=== PATIENT | male | born 1980 | race Caucasian/White ===

== ENCOUNTER → 2016-04-30 | Outpatient (CLI) | payer OTHER, BC ==
[~2016-04-30] MED LIST: CIPR-255 PO; DOCU100C PO; FLM4 PO; HYDR-5688 PO; ONDA4TAB10 SL; OXYC-57 PO; POLY335025 PO
--- NOTE | 2016-04-30 14:07 | DIAGNOSTIC IMAGING REPORT ---
KUB CLINICAL HISTORY: Nephrolithiasis. FINDINGS: 2 AP supine abdominal radiograph are compared to study dated 09/12/2014 and correlated with abdominal CT 8 06/05/2014. There is a nonobstructed abdominal bowel gas pattern. A 5 mm nonobstructing calculus projects over the upper pole of the right kidney. No calcifications are seen projecting over the left kidney or along the course of the ureters. The bony structures appear intact. The lung bases are clear as imaged. IMPRESSION: 1. There is a nonobstructing right renal calculus as detailed above. 2. No left renal calculi are identified and there is no evidence of ureteral stone. Electronically signed by: Inder Mccormack M.D. 04/30/2016 2:06 PM Dictated Date/Time: 04/30/2016 2:04 PM
== END | disposition home or self-care (01) ==
LOC: C.RAD 13:47
PROVIDERS: ATTEND Urology
DX: N20.0 Calculus of kidney (principal)

== ENCOUNTER → 2016-05-08 | Outpatient (CLI) | payer BC, OTHER ==
[~2016-05-08] MED LIST changes: -CIPR-255 PO; -DOCU100C PO; -FLM4 PO; -POLY335025 PO
--- NOTE | 2016-05-08 17:00 | DIAGNOSTIC IMAGING REPORT ---
CHEST 2 VIEWS ROUTINE CLINICAL HISTORY: N20.0 Nephrolithiasis preoperative evaluation COMPARISON STUDY: No previous studies for comparison. FINDINGS: The bones soft tissues and hemidiaphragms are normal. The cardiomediastinal silhouette is normal. The lungs are clear. The pulmonary vasculature is normal. IMPRESSION: Negative chest. Electronically signed by: David Green M.D. 05/08/2016 4:58 PM Dictated Date/Time: 05/08/2016 4:58 PM
[2016-05-08 17:09] LABS: BASO % 0.4 %; BASO ABS # 0.04 K/uL (0-0.2); COMPLETE YES; EOS % 1.8 %; HEMATOCRIT 44.6 % (42-52); IG% 0.1 %; LYMPH % 40.9 %; LYMPH ABS # 3.64 K/uL (1.2-3.4); MEAN CELL VOLUME 85.3 fL (80-100); MEAN CORPUSCULAR HEMOGLOBIN 29.3 pg (25-34); MEAN CORPUSCULAR HGB CONC 34.3 g/dl (32-36); MONO % 5.3 %; NEUT % 51.5 %; PLATELET COUNT 300 K/uL (130-400); RED BLOOD COUNT 5.23 M/uL (4.7-6.1)
[2016-05-08 17:25] LABS: URINE APPEARANCE CLEAR (CLEAR); URINE BILIRUBIN NEG (NEG); URINE COLOR YELLOW; URINE EPITHELIAL CELL AUTO 0-5 /lpf (0-5); URINE NITRITE NEG (NEG); URINE PH 6.5 (4.5-7.5); URINE SPECIFIC GRAVITY 1.014 (1.000-1.030); UROBILINOGEN NEG (NEG)
[2016-05-08 17:31] LABS: MANUAL MICROSCOPIC REQUIRED? NO; REVIEW REQ? NO
[2016-05-08 17:35] LABS: BLOOD UREA NITROGEN 16 mg/dl (7-18); BUN/CREATININE RATIO 14.4 (10-20); CARBON DIOXIDE 27 mmol/L (21-32); CHLORIDE 105 mmol/L (98-107); POTASSIUM 4.3 mmol/L (3.5-5.1); SODIUM 139 mmol/L (136-145)
== END | disposition home or self-care (01) ==
LOC: C.CPL 16:18
PROVIDERS: ATTEND Urology
DX: N20.0 Calculus of kidney (principal)

== ENCOUNTER → 2016-05-15 | Outpatient (CLI) | payer BC, OTHER ==
--- NOTE | 2016-05-15 16:18 | DIAGNOSTIC IMAGING REPORT ---
KUB CLINICAL HISTORY: Nephrolithiasis COMPARISON STUDY: 04/30/2016 FINDINGS: The renal shadows are partially obscured by overlying bowel gas and fecal material. There is a 3 mm calcification projected over the upper pole the right kidney suspicious for a calculus. There is a 2 mm calcification projected over the midpole the left kidney suspicious for a calculus. There is an equivocal additional punctate lower pole right renal calculus. There is no pathologic bowel dilatation. IMPRESSION: 1. No evidence of pathologic bowel dilatation 2. Bilateral nephrolithiasis Electronically signed by: Yobany Alvarado M.D. 05/15/2016 4:15 PM Dictated Date/Time: 05/15/2016 4:14 PM
== END | disposition home or self-care (01) ==
LOC: C.RAD 15:55
PROVIDERS: ATTEND Urology
DX: N20.0 Calculus of kidney (principal)

== ENCOUNTER → 2016-05-16 | Day surgery (SDC) | payer BC, OTHER ==
[2016-05-02 09:48] VITALS: Ht 177.8 cm; Wt 90.9 kg
[~2016-05-16] VITALS: Ht 177.8 cm; Wt 90.9 kg
[~2016-05-16] MED LIST changes: +ATROPINE SULFATE 0.1 MG/ML 5ML SYR IV PRN; +CIPROFLOXACIN 400MG / D5W IV SCH; +DEXAMETHASONE SOD INJ 4 MG/ML VIAL ONE; +EpHEDrine SULFATE INJ 50 MG/ML AMP IV PRN; +FENTANYL CITRATE INJ 50 MCG/1 ML 2 ML VIAL IV PRN; +FENTANYL CITRATE INJ 50 MCG/1 ML 2 ML VIAL ONE; +LIDOCAINE HCL 2% 2 ML VIAL (20MG/ML) ONE; +MIDAZOLAM HCL 1 MG/ML 2ML VIAL ONE; +ONDANSETRON INJ 2 MG/ML 2 ML VIAL IV PRN; +ONDANSETRON INJ 2 MG/ML 2 ML VIAL ONE; +OXYCODONE/ACETAMINOPHEN 5-325 TAB ONE; +OXYCODONE/ACETAMINOPHEN 5-325 TAB PO PRN; +PROPOFOL IV EMULSION 10 MG/ML 20 ML VIAL IV ONE
[2016-05-16] MEDS: LACTATED RINGER'S 1000ML 1,000 ML IV SCH ×2 (07:37→10:17)
--- NOTE | 2016-05-16 08:19 | History & Physical Bridge Note ---
H&P Re-Evaluation Bridge Note: I have examined the patient, reviewed the History & Physical and in the interval since the performance of the History & Physical I have noted the following changes of clinical significance: No changes noted
--- NOTE | 2016-05-16 09:18 | [facility] Post Operative Brief Note ---
Immediate Operative Summary Operative Date May 16, 2016. Pre-Operative Diagnosis right renal stones Post-Operative Diagnosis right renal stones Procedure(s) Performed R ESWL Surgeon Polly Yi Supervisor Hardboard Surgeon(s) none Estimated Blood Loss none Findings R renal stones x2 - targeted a single stone, appeared to fragment nicely Specimens none Drains none Anesthesia gen Complication(s) None Disposition Recovery Room / PACU (stable)
--- NOTE | 2016-05-16 09:22 | Discharge Instructions-SurgCtr ---
Discharge Instructions Date of Service May 16, 2016. Visit Reason for Visit: STONE Discharge Discharge Diagnosis / Problem: stone Discharge Goals Goal(s): Decrease discomfort, Improve function, Increase independence, Improve disease control Activity Recommendations Activity Limitations: resume your previous activity Lifting Limitations: none Exercise/Sports Limitations: none May Resume Sexual Activity: when tolerated Shower/Bathe: no limitations Driving or Machine Use: no limitations (as long as you aren't taking pain medications) Anesthesia . Post Anesthesia Instructions: If you have had General Anesthesia or IV Sedation: * Do not drive today. * Resume driving when surgeon permits. * Do not make important decisions or sign legal documents today. * Call surgeon for: 1. Temperature elevations greater than 101 degrees F. 2. Uncontrollable pain. 3. Excessive bleeding. 4. Persistent nausea and vomiting. 5. Medication intolerance (nausea, vomiting or rash). * For nausea and vomiting use only clear liquids such as: tea, soda, bouillon until nausea subsides, then gradually increase diet as tolerated. * If you have any concerns or questions, call your surgeon's office. If physician is unavailable and it is an emergency, call 911 or go to the nearest emergency room. . Diet Recommendations Home Diet: no limitations Procedures Procedures Performed: R ESWL Pending Studies Studies pending at discharge: no Medical Emergencies . Who to Call and When: Medical Emergencies: If at any time you feel your situation is an emergency, please call 911 immediately. . Non-Emergent Contact Non-Emergency issues call your: Urologist Call Non-Emergent contact if: you have a fever, temperature is above 101.5, your pain is not controlled, your pain is worsening, your pain is unusual for you . . "Provider Documentation" section prepared by Stalin Mcmillan. [place] Drug Monitoring Program Search Results: patient reviewed within database, no issues identified
[2016-05-16 10:28] VITALS: TEMP 36.2
[2016-05-16 10:47] VITALS: BP 113/73; PULSE 62; O2SAT 97
--- NOTE | 2016-05-16 11:00 | Anesthesiology Progress Note ---
Anesthesia Post Op Note Date & Time May 16, 2016 at 10:59 Vital Signs Pain Intensity: 4.0 Vital Signs Past 12 Hours Date Time Temp Pulse Resp B/P Pulse Ox O2 Delivery O2 Flow Rate FiO2 05/16/16 10:47 62 16 113/73 97 Room Air 05/16/16 10:28 36.2 52 16 114/74 99 Room Air 05/16/16 10:16 36.4 75 19 05/16/16 10:16 74 19 96 05/16/16 10:15 120/72 05/16/16 10:11 65 15 97 05/16/16 10:11 67 15 05/16/16 10:10 112/84 05/16/16 10:06 68 14 05/16/16 10:06 66 14 95 05/16/16 10:05 108/72 05/16/16 10:03 122/75 05/16/16 10:02 73 17 05/16/16 10:02 75 17 95 05/16/16 09:57 70 13 95 05/16/16 09:57 70 13 05/16/16 09:55 114/76 05/16/16 09:52 66 15 99 05/16/16 09:52 63 15 05/16/16 09:50 130/90 05/16/16 09:47 72 20 05/16/16 09:47 36.6 76 12 148/90 99 Diffusion Mask 6 05/16/16 09:47 72 20 148/90 99 05/16/16 07:12 36.4 78 20 114/75 97 Room Air Notes Mental Status: alert / awake / arousable, participated in evaluation Pt Amnestic to Procedure: Yes Nausea / Vomiting: adequately controlled Pain: adequately controlled Airway Patency, RR, SpO2: stable & adequate BP & HR: stable & adequate Hydration State: stable & adequate Anesthetic Complications: no major complications apparent
--- NOTE | 2016-05-16 13:30 | OPERATIVE REPORT ---
DATE OF OPERATION: 05/16/2016 PREOPERATIVE DIAGNOSIS: Right renal calculi. POSTOPERATIVE DIAGNOSIS: Right renal calculi. PROCEDURE PERFORMED: Right extracorporeal shockwave lithotripsy. ANESTHESIA: General. ESTIMATED BLOOD LOSS: Zero. URINE OUTPUT: Not recorded. SPECIMENS: None. DRAINS: None. DESCRIPTION OF THE PROCEDURE: Dax Myles was identified in the preoperative holding area. Appropriate informed consents were reviewed and completed, and the patient was transported to the operating suite. Upon arrival, he received appropriate preoperative antibiotic in the form of Cipro. General anesthesia was achieved and the patient was placed in supine position and the stone was localized under fluoroscopy. He had 2 stones noted within the right kidney and we elected to treat the upper pole stone. A total of 2500 shocks were delivered to the stone with good evidence of fragmentation. At the conclusion of the case, the patient was extubated and taken to the PACU in stable condition. Further details can be found on the [facility] information sheet. I attest to the content of the Intraoperative Record and any orders documented therein. Any exceptio ns are noted below.
== END | disposition home or self-care (01) ==
LOC: X.SURG 06:44
PROVIDERS: ATTEND Urology
DX: N20.0 Calculus of kidney (principal); Z87.442 Personal history of urinary calculi; Z82.49 Family history of ischemic heart disease and other diseases of the circulatory system; Z83.3 Family history of diabetes mellitus; Z88.0 Allergy status to penicillin; Z88.1 Allergy status to other antibiotic agents

== ENCOUNTER 2016-05-25 12:46 | Emergency (ER) | payer BC, OTHER ==
[~2016-05-25] VITALS: Ht 177.8 cm; Wt 89.7 kg
[~2016-05-25 12:46] MED LIST changes: -ATROPINE SULFATE 0.1 MG/ML 5ML SYR IV PRN; -CIPROFLOXACIN 400MG / D5W IV SCH; -DEXAMETHASONE SOD INJ 4 MG/ML VIAL ONE; -EpHEDrine SULFATE INJ 50 MG/ML AMP IV PRN; -FENTANYL CITRATE INJ 50 MCG/1 ML 2 ML VIAL IV PRN; -FENTANYL CITRATE INJ 50 MCG/1 ML 2 ML VIAL ONE; -LIDOCAINE HCL 2% 2 ML VIAL (20MG/ML) ONE; -MIDAZOLAM HCL 1 MG/ML 2ML VIAL ONE; -ONDA4TAB10 SL; -ONDANSETRON INJ 2 MG/ML 2 ML VIAL IV PRN; -ONDANSETRON INJ 2 MG/ML 2 ML VIAL ONE; -OXYC-57 PO; -OXYCODONE/ACETAMINOPHEN 5-325 TAB ONE; -OXYCODONE/ACETAMINOPHEN 5-325 TAB PO PRN; -PROPOFOL IV EMULSION 10 MG/ML 20 ML VIAL IV ONE
[2016-05-25 12:49] VITALS: TEMP 37; Ht 177.8 cm; Wt 89.7 kg
[2016-05-25] MEDS ORDERED: SODIUM CHLORIDE 0.9% 1000ML 500 ML IV ONE (13:16)
[2016-05-25 13:31] LABS: HEMATOCRIT 43.6 % (42-52); MEAN CELL VOLUME 86.5 fL (80-100); MEAN CORPUSCULAR HGB CONC 35.8 g/dl (32-36); MEAN PLATELET VOLUME 9.3 fL (7.4-10.4); PLATELET COUNT 285 K/uL (130-400); RED BLOOD COUNT 5.04 M/uL (4.7-6.1); WHITE BLOOD COUNT 12.72 K/uL (4.8-10.8)
[2016-05-25 13:35] LABS: URINE APPEARANCE CLEAR (CLEAR); URINE BILIRUBIN NEG (NEG); URINE COLOR YELLOW; URINE NITRITE NEG (NEG); URINE PH 6.5 (4.5-7.5); URINE SPECIFIC GRAVITY 1.026 (1.000-1.030); UROBILINOGEN NEG (NEG); ZZUR CULT IF INDIC CLEAN CATCH NO
[2016-05-25 13:39] LABS: MANUAL MICROSCOPIC REQUIRED? NO; REVIEW REQ? NO
[2016-05-25] MEDS ORDERED: ONDANSETRON INJ 2 MG/ML 2 ML VIAL IV STA (13:47)
[2016-05-25] MEDS ORDERED: KETOROLAC TROMETHAMINE 30 MG/ML VIAL IV STA (13:47)
[2016-05-25 13:48] LABS: CREATININE 1.6 mg/dl (0.60-1.40)
[2016-05-25 13:49] LABS: BUN/CREATININE RATIO 12.9 (10-20); CALCIUM 9.3 mg/dl (8.5-10.1); POTASSIUM 4.4 mmol/L (3.5-5.1)
[2016-05-25] MEDS ORDERED: FENTANYL CITRATE INJ 50 MCG/1 ML 2 ML VIAL IV ONE (14:15)
--- NOTE | 2016-05-25 14:45 | DIAGNOSTIC IMAGING REPORT ---
CT SCAN OF THE ABDOMEN AND PELVIS WITHOUT IV CONTRAST CLINICAL HISTORY: Right flank pain. Recent lithotripsy. COMPARISON STUDY: KUB dated 05/15/2016. Abdominal CT dated 06/05/2014. TECHNIQUE: CT scan of the abdomen and pelvis is performed from the lung bases to the proximal femora. Images are reviewed in the axial, sagittal, and coronal planes. IV contrast was not administered for this examination. Automated dose control exposure was utilized. CT DOSE: 1031.58 mGy.cm FINDINGS: Lung bases: The heart is normal in size and without pericardial effusion. Linear atelectasis is present the lung bases. The lung bases are otherwise clear. Liver: The unenhanced liver is normal in size, contour, and attenuation. There is no intrahepatic biliary ductal dilatation. Gallbladder: Unremarkable. Spleen: Normal in size and attenuation. Pancreas: Unremarkable. Adrenal glands: Unremarkable. Kidneys: The unenhanced kidneys are normal in size. There is a 6 mm obstructing calculus in the distal right ureter seen on image #433. This is located approximately 2 cm above the vesicoureteral junction and causes moderate right hydroureteronephrosis. There is associated right-sided perinephric stranding and trace fluid. An additional punctate nonobstructing calculus is seen in the lower pole the right kidney. There are least 2 small nonobstructing left renal calculi measuring up to 3 mm. There is no left-sided hydronephrosis. There is no evidence of contour deforming renal mass lesion. Abdominal vasculature: The abdominal aorta is normal in course and caliber. Bowel: The small bowel and colon are normal in course and caliber. The appendix is well-visualized and normal. Peritoneum: There is no intraperitoneal free air or abdominal ascites. There is a small fat-containing umbilical hernia. Lymphadenopathy: None. Pelvic viscera: The bladder, prostate, and seminal vesicles are normal as imaged. Skeletal structures: No lytic or blastic lesions are seen. IMPRESSION: 1. There is a 6 mm obstructing calculus in the distal right ureter. This causes moderate right-sided hydroureteronephrosis, and there is associated perinephric stranding and fluid. 2. Additional small nonobstructing calculi are seen bilaterally as detailed above. Electronically signed by: Inder Mccormack M.D. 05/25/2016 2:43 PM Dictated Date/Time: 05/25/2016 2:37 PM
[2016-05-25] MEDS ORDERED: MoRPHine SULFATE 4 MG/ML 1 ML CARP\\VIAL IV STA (14:59)
[2016-05-25] MEDS ORDERED: OXYC-57 PO (15:17)
[2016-05-25] MEDS ORDERED: ONDA4TAB10 SL (15:17)
--- NOTE | 2016-05-25 15:17 | EMERGENCY ROOM VISIT NOTE ---
History Report prepared by Yaquelin: Jose Bee Under the Supervision of: Dr. Ward Sands D.O. First contact with patient: 13:47 Chief Complaint: KIDNEY STONE Stated Complaint: KIDNEY STONE History of Present Illness The patient is a 35 year old male who presents to the Emergency Room with complaints of constant right kidney pain and pressure starting around 0430 this morning. The patient states that the pain was in his back, and it has moved into his stomach. The patient states that he has had pain all week, and he had a lithotripsy done 9 days ago. He additionally states that he had nausea and was vomiting, though he denies any fevers. He states that he took hydrocodone for the pain. Source of History: patient Onset: 0430 this morning Position: other (right kidney) Quality: pressure Timing: constant Associated Symptoms: + nausea, + vomiting, No fevers Review of Systems See HPI for pertinent positives & negatives. A total of 10 systems reviewed and were otherwise negative. Past Medical & Surgical Medical Problems: (1) No Known Active Medical Problems Family History Kidney disease Kidney stones Social History Smoking Status: Never Smoker Housing Status: lives with family Occupation Status: employed Current/Historical Medications Scheduled PRN Hydrocodone/Acetaminophen 5MG/325MG ([place] 5MG/325MG), 2 TABLETS PO Q6 PRN for Pain Allergies Coded Allergies: Amoxicillin (Verified Allergy, Unknown, HIVES, 05/25/16) Penicillins (Verified Allergy, Unknown, HIVES, 05/25/16) Physical Exam Vital Signs Date Time Temp Pulse Resp B/P Pulse Ox O2 Delivery O2 Flow Rate FiO2 05/25/16 14:22 60 20 146/86 94 Room Air 05/25/16 12:49 37.0 62 18 143/80 93 Room Air Physical Exam CONSTITUTIONAL/VITAL SIGNS: Reviewed / noted above. GENERAL: Non-toxic in appearance. INTEGUMENTARY: Warm, dry, and [place]. HEAD: Normocephalic. EYES: without scleral icterus or trauma. ENT/OROPHARYNX: clear and moist. LYMPHADENOPATHY/NECK: Is supple without lymphadenopathy or meningismus. RESPIRATORY: Lungs clear and equal. CARDIOVASCULAR: Regular rate and rhythm. GI/ABDOMEN: Soft and nontender. No organomegaly or pulsatile mass. No rebound or guarding. Normal bowel sounds. EXTREMITIES: Warm and well perfused. BACK: No CVA tenderness. NEUROLOGICAL: Intact without focal deficits. PSYCHIATRIC: normal affect. MUSCULOSKELETAL: Normally developed with good muscle tone. Medical Decision & Procedures ER Provider Diagnostic Interpretation: Radiology results as stated below per my review and radiologist interpretation: CT SCAN OF THE ABDOMEN AND PELVIS WITHOUT IV CONTRAST CLINICAL HISTORY: Right flank pain. Recent lithotripsy. COMPARISON STUDY: KUB dated 05/15/2016. Abdominal CT dated 06/05/2014. TECHNIQUE: CT scan of the abdomen and pelvis is performed from the lung bases to the proximal femora. Images are reviewed in the axial, sagittal, and coronal planes. IV contrast was not administered for this examination. Automated dose control exposure was utilized. CT DOSE: 1031.58 mGy.cm FINDINGS: Lung bases: The heart is normal in size and without pericardial effusion. Linear atelectasis is present the lung bases. The lung bases are otherwise clear. Liver: The unenhanced liver is normal in size, contour, and attenuation. There is no intrahepatic biliary ductal dilatation. Gallbladder: Unremarkable. Spleen: Normal in size and attenuation. Pancreas: Unremarkable. Adrenal glands: Unremarkable. Kidneys: The unenhanced kidneys are normal in size. There is a 6 mm obstructing calculus in the distal right ureter seen on image #433. This is located approximately 2 cm above the vesicoureteral junction and causes moderate right hydroureteronephrosis. There is associated right-sided perinephric stranding and trace fluid. An additional punctate nonobstructing calculus is seen in the lower pole the right kidney. There are least 2 small nonobstructing left renal calculi measuring up to 3 mm. There is no left-sided hydronephrosis. There is no evidence of contour deforming renal mass lesion. Abdominal vasculature: The abdominal aorta is normal in course and caliber. Bowel: The small bowel and colon are normal in course and caliber. The appendix is well-visualized and normal. Peritoneum: There is no intraperitoneal free air or abdominal ascites. There is a small fat-containing umbilical hernia. Lymphadenopathy: None. Pelvic viscera: The bladder, prostate, and seminal vesicles are normal as imaged. Skeletal structures: No lytic or blastic lesions are seen. IMPRESSION: 1. There is a 6 mm obstructing calculus in the distal right ureter. This causes moderate right-sided hydroureteronephrosis, and there is associated perinephric stranding and fluid. 2. Additional small nonobstructing calculi are seen bilaterally as detailed above. Electronically signed by: Inder Mccormack M.D. 05/25/2016 2:43 PM Dictated Date/Time: 05/25/2016 2:37 PM Laboratory Results 05/25/16 13:10 05/25/16 13:10 Test 05/25/16 13:10 Red Blood Count 5.04 M/uL (4.7-6.1) Mean Corpuscular Volume 86.5 fL (80-100) Mean Corpuscular Hemoglobin 31.0 pg (25-34) Mean Corpuscular Hemoglobin Concent 35.8 g/dl (32-36) RDW Standard Deviation 40.3 fL (36.4-46.3) RDW Coefficient of Variation 12.7 % (11.5-14.5) Mean Platelet Volume 9.3 fL (7.4-10.4) Urine Color YELLOW Urine Appearance CLEAR (CLEAR) Urine pH 6.5 (4.5-7.5) Urine Specific [place] 1.026 (1.000-1.030) Urine Protein NEG (NEG) Urine Glucose (UA) NEG (NEG) Urine Ketones NEG (NEG) Urine Occult Blood 3+ (NEG) Urine Nitrite NEG (NEG) Urine Bilirubin NEG (NEG) Urine Urobilinogen NEG (NEG) Urine Leukocyte Esterase TRACE (NEG) Urine WBC (Auto) 1-5 /hpf (0-5) Urine RBC (Auto) >30 /hpf (0-4) Urine Hyaline Casts (Auto) 1-5 /lpf (0-5) Urine Epithelial Cells (Auto) 10-20 /lpf (0-5) Urine Bacteria (Auto) NEG (NEG) Anion Gap 10.0 mmol/L (3-11) Est Creatinine Clear Calc Drug Dose 73.3 ml/min Estimated GFR () 64.2 Estimated GFR (Non- 55.4 BUN/Creatinine Ratio 12.9 (10-20) Calcium Level 9.3 mg/dl (8.5-10.1) Lipase 98 U/L (73-393) Laboratory results as stated above per my review. Medications Administered Medications (Trade) Dose Ordered Sig/Shelli Route Start Time Stop Time Status Last Admin Dose Admin Sodium Chloride (Nss 1000ml) 500 ml @ 999 mls/hr Q31M ONCE IV 05/25/16 13:16 05/25/16 13:46 DC 05/25/16 13:28 999 MLS/HR Ondansetron HCl (Zofran Inj) 4 mg NOW STAT IV 05/25/16 13:47 05/25/16 13:49 DC 05/25/16 14:02 4 MG Ketorolac Tromethamine (Toradol Inj) 30 mg NOW STAT IV 05/25/16 13:47 05/25/16 13:49 DC 05/25/16 14:02 30 MG Fentanyl Citrate (Fentanyl Inj) 100 mcg NOW ONCE IV 05/25/16 14:15 05/25/16 14:16 DC 05/25/16 14:18 100 MCG ED Course 1316: Sodium Chloride 500 ml @ 999 mls/hr IV 1347: Toradol Inj 30mg IV, Zofran Inj 4mg IV 1415: Fentanyl Inj 100mcg IV 1453: Previous medical records were reviewed. The patient was evaluated in room C7. A complete history and physical examination was performed. 1459: Morphine Sulfate 4mg IV 1515: On reevaluation, the patient is feeling better. I discussed the results and findings with the patient. He verbalized agreement of the treatment plan. He was discharged home. Medical Decision Differential considered: pancreatitis, hepatitis, or acute cholecystitis, AAA, UTI, pyelonephritis, kidney stones, appendicitis, diverticulitis, shingles, bowel obstruction mesenteric ischemia, intussusception,hernia, testicular torsion This is a 35-year-old male who presents to the ED with a chief complaint of right flank pain. The patient states that his symptoms started around 5:30 this morning. He states that his pain radiates towards the right groin area. He states that he had lithotripsy 9 days ago for the same stone. He has some associated nausea. Denies any fevers. No chest pains or shortness of breath. No additional symptoms. His CBC reveals white count of 12.7. Urine is 3+ blood. CT scan of the abdomen and pelvis reveals 6 mm distal right ureteral stone with moderate hydronephrosis. The patient was told the results. He was treated with IV Toradol, IV fentanyl, IV morphine and IV Zofran. His symptoms improved. He was felt to be stable for discharge. He does have Topamax at home. He is going to take this. The patient will be prescribed Percocet as well as Zofran. He does have a urine strainer and home as well. He has follow- up with his urologist, Dr. Meier next week. Impression Primary Impression: Renal colic Additional Impression: Ureteral calculus, right Scribe Attestation The scribe's documentation has been prepared under my direction and personally reviewed by me in its entirety. I confirm that the note above accurately reflects all work, treatment, procedures, and medical decision making performed by me. Departure Information Dispostion Home / Self-Care Prescriptions Ondasetron Odt (ZOFRAN ODT) 4 Mg Tab 4 MG SL Q6H for Nausea, #15 TAB Prov: Ward Sands D.O. 05/25/16 Oxycodone/Acetaminophen 5MG/325MG (PERCOCET 5MG/325MG) Tab 1 TAB PO Q6H Y for Pain, #20 TAB Prov: Ward Sands D.O. 05/25/16 Referrals No Doctor, Assigned (PCP) Patient Instructions Kidney Stones, [facility] Additional Instructions Take your Topamax once daily. Percocet as prescribed. No driving within 6 hours of use. Do not take additional Tylenol while taking Percocet. Zofran: Allow one tablet to dissolve under the tongue every 6 hours as needed for nausea or vomiting. Motrin, 600 mg every 6 hours as needed for pain. Follow-up with your urologist this week as scheduled. Return for any concerns or seeming worsening. Problem Qualifiers
[2016-05-25 15:19] VITALS: BP 124/77; PULSE 65; O2SAT 96
== END 2016-05-25 15:43 | disposition home or self-care (01) ==
LOC: C.EDB 12:46 → C.EDC 15:43
DX: N23 Unspecified renal colic (principal); N20.1 Calculus of ureter; Z84.1 Family history of disorders of kidney and ureter

== ENCOUNTER → 2016-05-27 | Outpatient (CLI) | payer BC, OTHER ==
[~2016-05-27] MED LIST changes: +ONDA4TAB10 SL; +OXYC-57 PO
--- NOTE | 2016-05-27 16:19 | DIAGNOSTIC IMAGING REPORT ---
KUB CLINICAL HISTORY: Nephrolithiasis COMPARISON STUDY: 05/15/2016 , CT scan dated 05/25/2016 FINDINGS: There is no pathologic bowel dilatation. There is a 2 mm mid pole left renal calculus. There is a 3 mm right pelvic basin calcification which was not present on the prior KUB dated 05/15/2016. This is consistent with the patient's recently described distal right ureteral calculus. IMPRESSION: 1. 3 mm distal right ureteral calculus 2. 2 mm mid pole left renal calculus Electronically signed by: Yobany Alvarado M.D. 05/27/2016 4:17 PM Dictated Date/Time: 05/27/2016 4:15 PM
== END | disposition home or self-care (01) ==
LOC: C.RAD 15:56
PROVIDERS: ATTEND Urology
DX: N20.0 Calculus of kidney (principal)

== ENCOUNTER → 2016-07-08 | Outpatient (CLI) | payer BC, OTHER ==
--- NOTE | 2016-07-08 15:32 | DIAGNOSTIC IMAGING REPORT ---
KUB CLINICAL HISTORY: Ureteral stone. COMPARISON STUDY: CT of the abdomen and pelvis May 25, 2016 and KUB May 27, 2016. FINDINGS: The distal right ureteral calculus shown on KUB of May 27, 2016 is no longer visualized. The small left renal calculus shown on prior exam is not visualized on this study. Bowel gas pattern is normal. IMPRESSION: No urinary calculi identified. The right ureteral calculus shown on exam of May 26, 2016 is not visualized and has likely passed. Electronically signed by: Lucian Baron M.D. 07/08/2016 3:30 PM Dictated Date/Time: 07/08/2016 3:27 PM
== END | disposition home or self-care (01) ==
LOC: C.RAD 14:48
PROVIDERS: ATTEND Urology
DX: N20.1 Calculus of ureter (principal)